=== PATIENT | male | born 1955 | race Caucasian/White ===

== ENCOUNTER 2024-01-03 03:42 | Emergency (ER) | payer MEDICARE ==
[2024-01-04] MEDS ORDERED: ASPIRIN 81 MG ONE (00:26)
--- NOTE | 2024-02-20 08:45 | XR ---
EXAM: XR Chest, 2 Views CLINICAL HISTORY: chest pain TECHNIQUE: Frontal and lateral views of the chest. COMPARISON: No relevant prior studies available. FINDINGS: Lungs:No consolidation or mass. Pleural space:No effusion. Heart: Mild cardiomegaly. Bones/joints:No acute findings. IMPRESSION: No acute cardiopulmonary process. Radiologist: Harrison Sen MD Electronically Signed: 01/04/24 02:25 Study first marked ready to read at 01:11, study last marked ready to read at 01:11, initial results transmitted at 02:25 Results also transmitted to Film Room, Film Room @ [phone] (Fax) [facility]
== END 2024-01-04 05:00 | disposition home or self-care (01) ==
LOC: EC 03:42
DX: R07.89 Other chest pain (principal)
CPT/HCPCS: 71046; 99285

== ENCOUNTER 2024-01-09 08:31 | Emergency (ER) | payer MEDICARE ==
[2024-01-09] MEDS: ONDANSETRON 4 MG/2 ML VIAL IVP STA (09:38)
[2024-01-09] MEDS: HYDROmorphone 0.5 MG/0.5 ML SYRINGE IVP STA ×2 (09:43→10:56)
--- NOTE | 2024-01-09 10:00 | ED ---
Eye Problem HPI - General Chief complaint: Eye Problems Stated complaint: post op comp-R eye issue Time Seen by Provider: 01/09/24 08:48 Source: patient, family, EMS, RN notes reviewed Mode of arrival: EMS Limitations: no limitations - History of Present Illness Initial comments: 68-year-old male presents emergency department with chief complaint of right eye pain. Patient states he had an injection yesterday at [facility] for glaucoma, macular degeneration. States that shortly after he started developing pain he had worsening pain throughout the night. Patient states that he was unable tolerated and states that he contacted someone who advised him come the emergency department. Patient denies any change in vision he states he normally has no vision or very blurry vision of the right eye. Patient denies any trauma patient offers no other associated symptoms. - Related Data Allergies Allergy/AdvReac Type Severity Reaction Status Date / Time No Known Allergies Allergy Verified 01/09/24 08:59 Review of Systems ROS Statement: Those systems with pertinent positive or pertinent negative responses have been documented in the HPI. ROS Other: All systems not noted in ROS Statement are negative. Past Medical History Past Medical History: Coronary Artery Disease (CAD), COPD, CVA/TIA, Eye Disorder, Hypertension, Liver Disease, Myocardial Infarction ([place]), Prostate Disorder, Respiratory Disorder Additional Past Medical History / Comment(s): Hepatitis, Stroke 2018 History of Any Multi-Drug Resistant Organisms: MRSA Date of last positivie culture/infection: 2010 MDRO Source:: left hand, lower back, left side Past Surgical History: Heart Catheterization, Heart Catheterization With Stent, Orthopedic Surgery, Tonsillectomy Additional Past Surgical History / Comment(s): Eye surgery, right knee surgery Smoking Status: Former smoker Past Alcohol Use History: Rare Past Drug Use History: Cocaine, Heroin, Marijuana, Methamphetamine General Exam Limitations: no limitations General appearance: alert, in no apparent distress Head exam: Present: atraumatic, normocephalic, normal inspection Eye exam: Present: PERRL, EOMI, conjunctival injection, other (Right eye pressure 36 left 32). Absent: normal appearance, scleral icterus, periorbital swelling ENT exam: Present: normal exam, mucous membranes moist Neck exam: Present: normal inspection, full ROM. Absent: tenderness, meningismus, lymphadenopathy Respiratory exam: Present: normal lung sounds bilaterally. Absent: respiratory distress, wheezes, rales, rhonchi, stridor Cardiovascular Exam: Present: regular rate, normal rhythm, normal heart sounds. Absent: systolic murmur, diastolic murmur, rubs, gallop, clicks Course Vital Signs 01/09/24 01/09/24 01/09/24 08:43 09:44 10:34 Pulse Rate 81 72 67 Respiratory 20 18 14 Rate Blood Pressure 209/110 212/102 206/119 O2 Sat by Pulse 91 L 94 L 94 L Oximetry 01/09/24 01/09/24 11:10 11:16 Pulse Rate 86 Respiratory 18 Rate Blood Pressure 208/97 O2 Sat by Pulse 95 Oximetry Medical Decision Making - Medical Decision Making Was pt. sent in by a medical professional or institution (PATY Alvarez, MACHINE SHOP INSTRUCTOR, urgent care, hospital, or retirement...) When possible be specific @ -No Did you speak to anyone other than the patient for history (EMS, parent, family, police, friend...)? What history was obtained from this source @ -No Did you review nursing and triage notes (agree or disagree)? Why? @ -I reviewed and agree with nursing and triage notes Were old charts reviewed (outside hosp., previous admission, EMS record, old EKG, old radiological studies, urgent care reports/EKG's, retirement records)? Report findings @ -No old charts were reviewed Differential Diagnosis (chest pain, altered mental status, abdominal pain women, abdominal pain men, vaginal bleeding, weakness, fever, dyspnea, syncope, headache, dizziness, GI bleed, back pain, seizure, CVA, palpatations, mental health, musculoskeletal)? @ -Eye pain, abrasion, postoperative complication, glaucoma EKG interpreted by me (3pts min.). @ -As above X-rays interpreted by me (1pt min.). @ -None done CT interpreted by me (1pt min.). @ -None done U/S interpreted by me (1pt. min.). @ -None done What testing was considered but not performed or refused? (CT, X-rays, U/S, labs)? Why? @ -None What meds were considered but not given or refused? Why? @ -None Did you discuss the management of the patient with other professionals ( professionals i.e. PATY Alvarez, MACHINE SHOP INSTRUCTOR, lab, RT, psych nurse, social security benefits interviewer, sales representative leather goods, teacher, corporate development officer, adult protective caseworker)? Give summary @ -Discussed case with saw man on-call for [facility] recommended patient to be discharged and follow-up in office at 1130 Was smoking cessation discussed for >3mins.? @ -No Was critical care preformed (if so, how long)? @ -No Were there social determinants of health that impacted care today? How? (Homelessness, low income, unemployed, alcoholism, drug addiction, transportation, low edu. Level, literacy, decrease access to med. care, custodial, rehab)? @ -No Was there de-escalation of care discussed even if they declined (Discuss DNR or withdrawal of care, Hospice)? DNR status @ -No What co-morbidities impacted this encounter? (DM, HTN, Smoking, COPD, CAD, Cancer, CVA, ARF, Chemo, Hep., AIDS, mental health diagnosis, sleep apnea, morbid obesity)? @ -None Was patient admitted / discharged? Hospital course, mention meds given and route, prescriptions, significant lab abnormalities, going to OR and other pertinent info. @ -Discharge patient will follow-up with his saw man at 11:30 AM today. Patient's pain is improved. Patient's blood pressure is significant elevated patient states that he only takes vitamins for this and states he does not want medications for patient. Recommended medication patient declines patient discharged. Undiagnosed new problem with uncertain prognosis? @ -No Drug Therapy requiring intensive monitoring for toxicity (Heparin, Nitro, Insulin, Cardizem)? @ -No Were any procedures done? @ -No Diagnosis/symptom? @ -eye pain, hypertension Acute, or Chronic, or Acute on Chronic? @ -Acute Uncomplicated (without systemic symptoms) or Complicated (systemic symptoms)? @ -Uncomplicated Side effects of treatment? @ -No Exacerbation, Progression, or Severe Exacerbation? @ -No Poses a threat to life or bodily function? How? (Chest pain, [place], [place], pneumonia, PE, COPD, DKA, ARF, appy, cholecystitis, CVA, Diverticulitis, Homicidal, Suicidal, threat to staff... and all critical care pts) @ -No Disposition Clinical Impression: Acute right eye pain, Hypertension Disposition: HOME SELF-CARE Condition: Stable Additional Instructions: Please go to [facility] at 1130 for your appointment. Please return to the Emergency Department if symptoms worsen or any other concerns. Is patient prescribed a controlled substance at d/c from ED?: No Referrals: None,Stated [REFERRING] - 1-2 days Time of Disposition: 09:58
[2024-01-09] MEDS: hydrALAZINE HCL 20 MG/ML 1 ML VIAL IVP STA ×2 (10:52→11:15)
[2024-01-09 11:11] VITALS: BP 208/97
[2024-01-09 11:20] VITALS: PULSE 86; RESP 18
== END 2024-01-09 11:22 | disposition home or self-care (01) ==
LOC: EC 08:31
CPT/HCPCS: 96374; 96375; 96376; 99284

== ENCOUNTER → 2024-03-28 | Outpatient (CLI) | payer MEDICARE ==
--- NOTE | 2024-03-28 21:04 | US ---
EXAMINATION TYPE: US carotid duplex BILAT DATE OF EXAM: 03/28/2024 COMPARISON: NONE CLINICAL INDICATION: Male, 69 years old with history of I65.23 OCCLUSION AND STENOSIS; hx of bilatera l stenosis. Hx of stents Additional History: I65.- Occlusion/stenosis of specified precerebral artery, specified laterality TECHNIQUE: Grayscale, color Doppler and spectral Doppler evaluation of the bilateral carotid systems and vertebral arteries. Indirect Doppler criteria was utilized. FINDINGS: EXAM MEASUREMENTS: RIGHT: Peak Systolic Velocity (PSV) cm/sec ----- Right CCA: 49.4 ----- Right ICA: 219.1 ----- Right ECA: 42.4 ICA/CCA ratio: 4.4 RIGHT: End Diastole cm/sec ----- Right CCA: 9.2 ----- Right ICA: 46.3 ----- Right ECA: 0.0 LEFT: Peak Systolic Velocity (PSV) cm/sec ----- Left CCA: 57.2 ----- Left ICA: 150.8 ----- Left ECA: 84.5 ICA/CCA ratio: 2.6 LEFT: End Diastole cm/sec ----- Left CCA: 18.0 ----- Left ICA: 55.5 ----- Left ECA: 9.8 VERTEBRALS (direction of flow): Right Vertebral: Antegrade Left Vertebral: Antegrade Rhythm: Normal WRAPPER AND PRESERVER NOTES: Moderate to severe amount of plaque seen in right distal CCA, bulb, and prox ICA. Right prox ICA velocity is elevated. Left stent visualized. Color Doppler imaging shows patency with blood flow throughout the carotid artery. Spectral waveforms are within normal limits. IMPRESSION: 1. Atheromatous plaque present bilaterally. Right internal carotid artery has moderate elevated veloc ity. This currently estimated at the high end between 50 and 69%. Left internal carotid artery has m oderate elevated velocity near the low end between 50 and 69% Criteria for Assigning % of Stenosis / Diameter reduction (Estimation based on the indirect measurements of the internal carotid artery velocities (ICA PSV). 1. Normal (no stenosis)=ICA PSV < 125 cm/s: ratio < 2.0: ICA EDV<40 cm/s. 2. Less than 50% stenosis=ICA PSV < 125 cm/s: ratio < 2.0: ICA EDV<40 cm/s. 3. 50 to 69% stenosis=ICA PSV of 125 to 230 cm/s: ration 2.0 ? 4.0: ICA EDV 40-100 cm/s. 4. Greater than 70% stenosis to near occlusion= ICA PSV > 230 cm/s: ratio > 4.0: ICA EDV > 100 cm/s. 5. Near occlusion= ICA PSV velocities may be low or undetectable: variable ratio and ICA EDV. 6. Total occlusion=unable to detect flow. [facility], , 03/28/2024 9:02 PM
== END | disposition home or self-care (01) ==
LOC: RADUSWWP 12:49
PROVIDERS: ATTEND Family Medicine
DX: I65.23 Occlusion and stenosis of bilateral carotid arteries (principal); I70.90 Unspecified atherosclerosis
CPT/HCPCS: 93880